=== PATIENT | male | born 1995 | race Hispanic/Latino ===

== ENCOUNTER 2017-11-28 07:45 | Emergency (ER) | payer SELFPAY ==
[2017-11-28] MEDS ORDERED: Famotidine 20 MG TAB ONE (09:04)
[2017-11-28] MEDS ORDERED: predniSONE 20 MG TAB ONE (09:05)
== END 2017-11-28 09:24 | disposition home or self-care (01) ==
LOC: ERS 07:45
DX: S00.86XA Insect bite (nonvenomous) of other part of head, initial encounter (principal); S20.361A Insect bite (nonvenomous) of right front wall of thorax, initial encounter; S40.861A Insect bite (nonvenomous) of right upper arm, initial encounter; W57.XXXA Bitten or stung by nonvenomous insect and other nonvenomous arthropods, initial encounter
CPT/HCPCS: 99282; J7506

== ENCOUNTER 2018-08-23 18:30 | Emergency (ER) | payer SELFPAY ==
--- NOTE | 2018-08-23 20:08 | RAD ---
EXAM: 3 views of the right wrist HISTORY: Wrist pain COMPARISON: None FINDINGS: 3 views of the right wrist shows no evidence of acute fracture or dislocation. No soft tiss ue swelling is seen. No degenerative changes are present. IMPRESSION: No evidence of acute osseous abnormality.
== END 2018-08-23 21:20 | disposition home or self-care (01) ==
LOC: ERS 18:30
DX: M25.531 Pain in right wrist (principal); X50.1XXA Overexertion from prolonged static or awkward postures, initial encounter

== ENCOUNTER 2018-12-12 05:48 | Emergency (ER) | payer SELFPAY ==
[2018-12-12] MEDS ORDERED: hydrOXYzine Pamoate 25 mg Capsule PO SCH (06:30)
--- NOTE | 2018-12-12 07:56 | RAD ---
CHEST 2 VIEWS: HISTORY: Panic attack. FINDINGS: Normal cardiac silhouette. Lungs and pleural spaces are clear. No pneumothorax or osseous abnormali ties. IMPRESSION: No acute cardiopulmonary process. POS: [id number]
== END 2018-12-12 06:50 | disposition home or self-care (01) ==
LOC: ERS 05:48
DX: F41.9 Anxiety disorder, unspecified (principal); F17.210 Nicotine dependence, cigarettes, uncomplicated; Z71.6 Tobacco abuse counseling
CPT/HCPCS: 71046; 93005; 99406; Q0177